=== PATIENT | female | born 1940 | race Hispanic/Latino ===

== ENCOUNTER 2017-08-22 10:54 | Day surgery (SDC) | payer MEDICARE ==
[2017-08-22] MEDS ORDERED: IOPIDINE ONE (12:19)
[2017-08-22] MEDS ORDERED: IOPIDINE OD ONE (12:19)
[2017-08-22] MEDS ORDERED: NEOFRIN OD ONE (12:19)
[2017-08-22] MEDS ORDERED: MYDRIACYL ONE (12:19)
[2017-08-22] MEDS ORDERED: MYDRIACYL OD ONE (12:19)
[2017-08-22] MEDS ORDERED: NEOFRIN ONE (12:19)
[2017-08-22 12:24] VITALS: BP 138/68
== END 2017-08-22 10:55 | disposition home or self-care (01) ==
LOC: OR 10:54
PROVIDERS: ATTEND Specialist
DX: H26.491 Other secondary cataract, right eye (principal); I11.0 Hypertensive heart disease with heart failure; I50.9 Heart failure, unspecified; I25.2 Old myocardial infarction; E78.00 Pure hypercholesterolemia, unspecified; K21.9 Gastro-esophageal reflux disease without esophagitis; E11.9 Type 2 diabetes mellitus without complications; M13.869 Other specified arthritis, unspecified knee; Z95.5 Presence of coronary angioplasty implant and graft; Z86.73 Personal history of transient ischemic attack (TIA), and cerebral infarction without residual deficits; Z90.710 Acquired absence of both cervix and uterus; Z90.49 Acquired absence of other specified parts of digestive tract; Z98.890 Other specified postprocedural states; Z85.828 Personal history of other malignant neoplasm of skin